=== PATIENT | female | born 1950 | race Caucasian/White ===

== ENCOUNTER → 2017-10-31 | Outpatient (CLI) | payer MEDICARE, OTHER ==
[~2017-10-31] MED LIST: ASPI-1441 PO; ATOR20TA22 PO; CALC500T6 PO; CIPR-344 PO; DOXY-1 PO; EST3 PO; ESTR42.5 VG; FEN145 PO; FISH OIL1 CAP PO; LEV112 PO; LEVO-3 PO; LEVO-85 PO; METR-160 PO; MULT1CAP41 PO; PHEN200T32 PO; RALO60TA12 PO; [UNRECOGNIZED DRUG - OTHER]
== END ==
LOC: LAB 08:38
PROVIDERS: ATTEND Nurse Practitioner Family
DX: E89.41 Symptomatic postprocedural ovarian failure (principal)
CPT/HCPCS: 36415; 82670; 83001; 84403

== ENCOUNTER → 2018-01-15 | Outpatient (CLI) | payer MEDICARE, OTHER | LOC: LAB 11:05 | PROVIDERS: ATTEND Nurse Practitioner Family | DX: E07.9 Disorder of thyroid, unspecified (principal) | CPT/HCPCS: 36415; 84443 ==

== ENCOUNTER → 2018-08-02 | Outpatient (CLI) | payer MEDICARE, OTHER | LOC: LAB 08:16 | PROVIDERS: ATTEND Nurse Practitioner Family | DX: N95.1 Menopausal and female climacteric states (principal) | CPT/HCPCS: 36415; 82670; 83001; 84403 ==

== ENCOUNTER → 2018-08-05 | Outpatient (CLI) | payer MEDICARE, OTHER ==
--- NOTE | 2018-08-06 10:09 | RADIOLOGY IMAGING REPORT ---
FACILITY: [facility] PATIENT NAME: CAREY GUNDERSON : [id number] MR: [id number] V: [id number] EXAM DATE: ORDERING PHYSICIAN: WILNER ELLIS TECHNOLOGIST: Elise Calero PROCEDURE:BILATERAL DIGITAL SCREENING MAMMOGRAM WITH CAD ASSISTED INTERPRETATION & 3D TOMOSYNTHESIS COMPARISON:Prior mammograms 08/02/17, 08/07/16, 07/31/16, 07/29/15, 07/28/14, 07/17/13. INDICATIONS:SCREENING FINDINGS: Dense heterogeneous fibroglandular tissue is seen throughout the breasts. In the deep central portion of the Right breast there is a lobular mass not appreciated on the prior study. For which Right breast Ultrasound is recommended. There is an additional smaller lobular mass like area in the upper portion of the Right breast on the Right MLO view and appears to be in the medial portion of the Right breast on the Right CC view. The previous masses are best seen on the Tomographic images. DIAGNOSTIC CATEGORY 0--INCOMPLETE: NEED ADDITIONAL IMAGING EVALUATION. RECOMMENDATIONS: ULTRASOUND: RIGHT BREAST. IMPRESSION: BIRADS 0: Incomplete. Right breast Ultrasound recommended for the 2 lobular masses as described above. Dictated by: Sis Travis M.D. on 08/05/2018 at 17:24 Transcribed by: MELIA on 08/06/2018 at 7:48 Approved by: Sis Travis M.D. on 08/06/2018 at 10:08 [facility]
== END ==
LOC: MAMO 02:58
PROVIDERS: ATTEND Nurse Practitioner Family
DX: R92.2 Inconclusive mammogram (principal)
CPT/HCPCS: 77063; 77067

== ENCOUNTER → 2018-08-12 | Outpatient (CLI) | payer MEDICARE, OTHER ==
--- NOTE | 2018-08-13 14:19 | RADIOLOGY IMAGING REPORT ---
FACILITY: [facility] PATIENT NAME: CAREY GUNDERSON : [id number] MR: [id number] V: [id number] EXAM DATE: ORDERING PHYSICIAN: WILNER ELLIS TECHNOLOGIST: Dia Banerjee RDMS PROCEDURE:US RIGHT BREAST COMPLETE COMPARISON:Right mammogram 08/05/18. INDICATIONS:FURTHER EVAL FINDINGS: In the 12 o'clock position of the Right breast 4cm from the nipple there are 2 irregular hypoechoic nodules that appear to demonstrate a faint internal echo. There is no acoustic enhancement. Due to the irregular margins Ultrasound guided core biopsy is recommended. Also in the 12 o'clock position of the Right breast 3cm from the nipple is a 1.4cm cyst likely accounting for the lobular density seen in the deep central Right breast on the recent mammogram. Also in the 12 o'clock position of the Right breast 2cm from the nipple is a 6.3mm cyst. In the 1 o'clock position of the Right breast 5cm from the nipple is a 5.4mm cyst and an additional 5.4mm cyst. In the 5 o'clock position of the Right breast 5cm from the nipple is a 4mm cyst. Also in the 5 o'clock position of the Right breast 4cm from the nipple is a 6.7mm cyst. In the 6 o'clock position of the Right breast there is a 4mm cyst. In the 8 o'clock position of the Right breast 5cm from the nipple is a 5mm cyst. In the 9 o'clock position of the Right breast 6cm from the nipple is an additional small cyst although a measurement was not obtained. Also in the 9 o'clock position of the Right breast 4cm from the nipple is a small cluster of cysts. Also a measurement was not obtained. DIAGNOSTIC CATEGORY 4--SUSPICIOUS FOR MALIGNANCY. RECOMMENDATIONS: ULTRASOUND-GUIDED CORE BIOPSY: RIGHT BREAST. IMPRESSION: BIRADS 4: Suspicious for malignancy. There are 2 irregular hypoechoic nodules in the 12 o'clock position of the Right breast 4cm from the nipple for which Ultrasound guided core biopsy is recommended. Dictated by: Sis Travis M.D. on 08/13/2018 at 13:28 Transcribed by: MELIA on 08/13/2018 at 13:58 Approved by: Sis Travis M.D. on 08/13/2018 at 14:18 [facility]
== END ==
LOC: US 00:55
PROVIDERS: ATTEND Nurse Practitioner Family
DX: N63.12 Unspecified lump in the right breast, upper inner quadrant (principal); N60.01 Solitary cyst of right breast; N63.14 Unspecified lump in the right breast, lower inner quadrant; N63.11 Unspecified lump in the right breast, upper outer quadrant

== ENCOUNTER 2018-08-16 15:07 | Outpatient (RCR) | payer MEDICARE, OTHER ==
[~2018-08-16 15:07] MED LIST changes: -METR-160 PO; +METR500T54 PO
--- NOTE | 2018-08-27 10:33 | RADIOLOGY IMAGING REPORT ---
FAC[facility] PATIENT NAME: CAREY GUNDERSON : [id number] MR: [id number] V: [id number] EXAM DATE: [id number] ORDERING PHYSICIAN: WILNER ELLIS TECHNOLOGIST: Dia Banerjee RDMS This report includes an Addendum and supersedes previous reports for this exam. PROCEDURE: ULTRASOUND GUIDEDBIOPSY OF 2 LESIONS IN THE RIGHT BREAST COMPARISON: Ultrasound Right Breast 08/12/2018. INDICATIONS: CLIP PLACEMENT BIOPSY ON RT BREAST/2 INDETERMINATE LESIONS 12 O'CLOCK POSITION RIGHT BREAST FINDINGS: Prior to the exam, risks and benefits of an Ultrasound guided biopsy of 2 lesions in the Right breast were discussed with the patient and informed consent was obtained. The patient was placed supine on a gurney and the Right breast was prepped and draped in the normal sterile fashion. The more inferior of the 2 lesions was evaluated first. 1% lidocaine was locally injected for analgesia. After a small skin edmond, using the Ultrasound guidance 2 passes were made at the more inferior of the 2 lesions with a spring loaded biopsy needle. Next, the more cephalad of the 2 lesions was then evaluated and 1% lidocaine was locally injected for analgesia. Using Ultrasound guidance a spring loaded biopsy needle was used to obtain 2 samples. A biopsy breast clip was then placed at the area of the 2 biopsy sites. IMPRESSION: 1. Ultrasound guided biopsy of 2 lesions of the Right breast, 12 o'clock position 4cm from the nipple. There are no immediate post surgical complications. Dictated by: Darinel Michaud M.D. on 08/19/2018 at 17:17 Transcribed by: DANIEL on 08/20/2018 at 15:15 Approved by: Darinel Michaud M.D. on 08/27/2018 at 10:33 [facility] ADDENDUM: The Ultrasound guided biopsy that was performed of the Right breast 08/19/2018 of 2 lesions. The pathology report is now available. Both biopsy lesions have a diagnosis of fibrocystic changes. This diagnosis is consistent with the Ultrasound findings. No further follow-up is recommended. Dictated by: Darinel iMchaud M.D. on 09/02/2018 at 15:40 Transcribed by: MELIA on 09/03/2018 at 8:50 Approved by: Sis Travis M.D. on 09/04/2018 at 8:23 [facility]
--- NOTE | 2018-08-27 10:34 | RADIOLOGY IMAGING REPORT ---
FACILITY: [facility] PATIENT NAME: CAREY GUNDERSON : [id number] MR: [id number] V: [id number] EXAM DATE: [id number] ORDERING PHYSICIAN: WILNER ELLIS TECHNOLOGIST: Elise Calero PROCEDURE:RIGHT DIGITAL DIAGNOSTIC MAMMOGRAM COMPARISON:None. INDICATIONS:STATUS POST CLIP PLACEMENT FROM BIOPSY ON RT BREAST FINDINGS: CC & MLO views of Right breast were obtained. The images demonstrated the biopsy clip in good position with respect to the biopsy site. IMPRESSION: The Right breast mammogram demonstrating appropriate position of a clip post Right breast biopsy. Dictated by: Darinel Michaud M.D. on 08/19/2018 at 17:18 Transcribed by: DANIEL on 08/20/2018 at 15:12 Approved by: Darinel Michaud M.D. on 08/27/2018 at 10:33 [facility]
== END 2018-08-19 18:00 | disposition home or self-care (01) ==
LOC: MAMO 15:07 → EDSTATUS 15:07 → MAMO 08-19 18:00
PROVIDERS: ATTEND Nurse Practitioner Family
DX: N95.1 Menopausal and female climacteric states (principal); R92.8 Other abnormal and inconclusive findings on diagnostic imaging of breast
CPT/HCPCS: 19083; 36415; 77061; 77065; 82670; 83001; 84403; 88305; 88344